=== PATIENT | female | born 1980 | race Caucasian/White ===

== ENCOUNTER → 2018-06-10 | Outpatient (REF) | payer OTHER | LOC: M LAB REF 16:16 | DX: J02.9 Acute pharyngitis, unspecified (principal) | CPT/HCPCS: 87070 ==

== ENCOUNTER 2018-11-02 17:31 | Inpatient (IN) | payer OTHER ==
[~2018-11-02] VITALS: Ht 170.2 cm; Wt 75.6 kg
[2018-11-02] MEDS ORDERED: MULTCAP PO (17:38)
[2018-11-02] MEDS ORDERED: SYNT25TA PO ×2 (17:38→21:09)
[2018-11-02 18:38] LABS: BASO % 0.4 % (0.0-1.0); EOS % 0.3 % (0.0-3.0); HEMATOCRIT 23.3 % (36.0-47.0); LYMPH # 1.6 10^3/uL (1.5-4.5); MEAN CORPUSCULAR HEMOGLOBIN 14.7 pg (27.0-33.0); MEAN CORPUSCULAR HGB CONC 23.6 g/dl (32.0-36.5); MEAN CORPUSCULAR VOLUME 62.5 fl (80.0-96.0); MONO # 0.4 10^3/uL (0.0-0.8); MONO % 4.7 % (0.0-5.0); NEUTROPHILS # 5.6 10^3/uL (1.8-7.7); NEUTROPHILS % 73.3 % (36.0-66.0); PLATELET COUNT, AUTOMATED 347 10^3/uL (150-450); RED BLOOD COUNT 3.73 10^6/uL (4.00-5.40); WHITE BLOOD COUNT 7.7 10^3/uL (4.0-10.0)
[2018-11-02 18:43] LABS: HEMOGLOBIN 5.5 g/dl (12.0-15.5)
[2018-11-02 19:07] LABS: ALBUMIN 3.7 GM/DL (3.2-5.2); ALT/SGPT 16 U/L (12-78); BILIRUBIN,DIRECT 0.2 MG/DL (0.0-0.2); BILIRUBIN,TOTAL 0.5 MG/DL (0.2-1.0); BLOOD UREA NITROGEN 15 MG/DL (7-18); CALCIUM LEVEL 8.4 MG/DL (8.5-10.1); CARBON DIOXIDE LEVEL 26 MEQ/L (21-32); CHLORIDE LEVEL 106 MEQ/L (98-107); CREATININE FOR GFR 0.54 MG/DL (0.55-1.30); GLOMERULAR FILTRATION RATE > 60.0 (>58); GLUCOSE, FASTING 93 MG/DL (70-100); POTASSIUM SERUM 3.7 MEQ/L (3.5-5.1); SODIUM LEVEL 138 MEQ/L (136-145); TOTAL PROTEIN 6.5 GM/DL (6.4-8.2)
[2018-11-02 19:11] LABS: INR 0.92; PROTHROMBIN TIME 12.4 SECONDS (12.1-14.4)
[2018-11-02 19:12] LABS: PARTIAL THROMBOPLASTIN TIME 26.3 SECONDS (25.4-37.6)
[2018-11-02 19:32] LABS: CK-MB VALUE MASS < 1.0 NG/ML (<3.6); CPK CREATINE PHOSPHOKINASE 40 U/L (26-192); IRON (FE) 10 UG/DL (50-170); PERCENT SATURATION 1.8 % (13.2-45.0); TOTAL IRON BINDING CAPACITY 545 UG/DL (250-450); TROPONIN I < 0.02 NG/ML (< 0.10)
[2018-11-02] MEDS ORDERED: ACETAMINOPHEN TAB 650MG DOSE (2X325MG) PO PRN (20:45)
[2018-11-02] MEDS ORDERED: PANTOPRAZOLE SODIUM 40 MG in D5W 50 ML IV SCH (21:00)
[2018-11-02] MEDS: PANTOPRAZOLE 40MG INJ (PROTONIX) (C9113) IV SCH (21:00)
[2018-11-02] MEDS ORDERED: VITACHTA PO (21:09)
--- NOTE | 2018-11-02 21:20 | HPEPDOC ---
General Date of Admission November 02, 2018 at 20:15 Chief Complaint The patient is a 38-year-old female admitted with a reason for visit of Iron Def iciency [place]. Source: Patient Exam Limitations: No limitations Timing/Duration: Unsure Severity: Moderate Associated Symptoms: Denies Symptoms History of Present Illness Pt is a 38 year old female with PMH of hypotyroidism, cholecystitis, and left sided ovarian cyst s/p removal presents to [facility] ER after she was told by her PCP to come to ER d/t Hg of 5.5 on routine blood work. She denies any symptoms and said she had lab done as she has hypothyroidism on levothyroxine. Denies any symptoms including dizziness, lightheadedness, menorrhagia, metrorrhagia, thin stool, hematocheiza, melena, or any other symptoms such as CP/palpitation/SOB. She is unsure about her menstrual cycle but reported one period every month lasting 3-4 days, and uses about 18 tampons for each menstrual cycle, reported the tampons were not soaked. She had never had any colonoscopy done and deneis any FHX of colon CA or blood disease. She had her last child in 2011 with low hemoglobin prior to delivery and required 2 units of blood transfusion after the vaginal delivery; reported lightheadedness/dizziness at that time and she was unsure what her hemoglobin was. Reported she was never told that she had anemia other than her third delivery; last Hg was 2015 and was not aware she had anemia at that time. Denies any FHX of blood disease. It is noted that she had gastric bypass surgery in 2008. Pt is full code Home Medications Scheduled Levothyroxine Sodium (Synthroid) 25 Mcg Tablet, 25 MCG PO DAILY, (Reported) Multivitamins (Child Chew Vitamin) 1 Each Tab.chew, 2 TAB PO DAILY, (Reported) Allergies Coded Allergies: No Known Allergies (Unverified , 11/02/18) Past Medical History Medical History hypothyroidism cholecystitis Left sided ovarian cyst Surgical History Cholecystectomy Tonsilectomy as a child Left ovarian cyst removal; reported no malignancy potential Gastric bypass 2008 Three deliveries 1998, 2000, and 2011; anemia requiring 2 units blood transfusion in 2011 Family History Significant Family History: Hypertension (father), Other (Deneis any colon CA or blood disorder) Social History * Smoker: Denies A-FIB/CHADSVASC A-FIB History Current/History of A-Fib/PAF?: No Review of Systems Constitutional: Denies: Chills, Fever, Weakness, Fatigue Pulmonary: Denies: Dyspnea Cardiovascular: Denies: Chest Pain, Palpitations, Lt Headedness Gastrointestinal: Denies: Nausea, Vomiting, Abdominal Pain, Diarrhea, Constipation, Melena, Hematochezia Genitourinary: Denies: Dysuria, Frequency, Incontinence, Hematuria, Retention Hematologic: Denies: Bruising, Bleeding Excessively Neurological: Denies: Weakness Physical Examination General Exam: Positive: Alert, No Acute Distress Eye Exam: Positive: Other Eye Symptoms (pale palpebral conjunctiva in bilateral lower eyelids); Negative: Sclera icteric ENT Exam: Positive: Atraumatic, Other ENT (lips moist and pink) Neck Exam: Positive: Supple Chest Exam: Positive: Clear to auscultation, Normal air movement; Negative: Rales, Rhonchi, Wheezing Heart Exam: Positive: Tachycardic, Regular Rhythm, Normal S1, Normal S2; Negative: Murmurs Abdomen Exam: Positive: Normal bowel sounds, Soft; Negative: Tenderness Extremity Exam: Positive: Normal pulses (b/l radial pulses), Other (finger nail beds appear to be pale); Negative: Swelling Skin Exam: Positive: Nl turgor and temperature Neuro Exam: Positive: Normal Speech, Strength at 5/5 X4 ext, Normal Tone Psych Exam: Positive: Mental status NL, Mood NL, Memory Intact, Oriented x 3 Other physical findings no spurapubic tenderness Vital Signs Vital Signs Date Time Temp Pulse Resp B/P (MAP) Pulse Ox O2 Delivery O2 Flow Rate FiO2 11/02/18 18:01 11/02/18 17:31 98.9 102 16 100 Room Air Laboratory Data Labs 24H Laboratory Tests 2 11/02/18 18:03: Immature Granulocyte % (Auto) 0.3, White Blood Count 7.7, Red Blood Count 3.73L, Hemoglobin 5.5*L, Hematocrit 23.3L, Mean Corpuscular Volume 62.5L, Mean Corpuscular Hemoglobin 14.7L, Mean Corpuscular Hemoglobin Concent 23.6L, Red Cell Distribution Width 22.2H, Platelet Count 347, Neutrophils (%) (Auto) 73.3H, Lymphocytes (%) (Auto) 21.0L, Monocytes (%) (Auto) 4.7, Eosinophils (%) (Auto) 0.3, Basophils (%) (Auto) 0.4, Neutrophils # (Auto) 5.6, Lymphocytes # (Auto) 1.6, Monocytes # (Auto) 0.4, Eosinophils # (Auto) 0.0, Basophils # (Auto) 0.0, Nucleated Red Blood Cells % (auto) 0.0, Prothrombin Time 12.4, Prothromb Time International Ratio 0.92, Activated Partial Thromboplast Time 26.3, Anion Gap 6L, Glomerular Filtration Rate > 60.0, Calcium Level 8.4L, Iron Level 10L, Total Iron Binding Capacity 545H, Transferrin % Saturation 1.8L, Aspartate Amino Trans f (AST/SGOT) 13, Alanine Aminotransferase (ALT/SGPT) 16, Alkaline Phosphatase 96, Total Bilirubin 0.5, Direct Bilirubin 0.2, Total Creatine Kinase 40, Creatine Kinase MB < 1.0, Creatine Kinase MB Relative Index 2.50, Troponin I < 0.02, Total Protein 6.5, Albumin 3.7, Albumin/Globulin Ratio 1.32, Thyroid Stimulating Hormone (TSH) 2.490 CBC/BMP Laboratory Tests 11/02/18 18:03 Red Blood Count 3.73 L, Mean Corpuscular Volume 62.5 L, Mean Corpuscular Hemoglobin 14.7 L, Mean Corpuscular Hemoglobin Concent 23.6 L, Red Cell Distribution Width 22.2 H, Neutrophils (%) (Auto) 73.3 H, Lymphocytes (%) (Auto) 21.0 L, Monocytes (%) (Auto) 4.7, Eosinophils (%) (Auto) 0.3, Basophils (%) (Auto) 0.4, Neutrophils # (Auto) 5.6, Lymphocytes # (Auto) 1.6, Monocytes # (Auto) 0.4, Eosinophils # (Auto) 0.0, Basophils # (Auto) 0.0 Problems (1) Iron deficiency anemia Problem Text: Cannot r/o GI bleed. Discussed with Dr. Meek, pt will be on clear liquid diet, IV protonix and LDH, haptologbin, and peripheral smear ordered. GI consult ordered, likely bowel prep pt tmrw and pt will be on clear liquid diet now; likely scheduled for upper and lower EGD 11/04/18. B12 and folate ordered as pt had gastric bypass surgery 10 years ago. Microcytic anemia with iron panel showed iron deficiency anemia without obvious source of bleeding at this time. 2 units of blood tranfusion ordered in ER. Cont to trend H&H Q4H with morning CBC. Pt currently asymptomatic. Vital signs as scheduled and cont to monitor the pt (2) Hypothyroidism Status: Chronic Problem Text: Cont home med levothyroxine. Cont to monitor the pt. Vital signs as scheduled Plan / VTE VTE Prophylaxis Ordered?: Yes (TEDS and SCD) SHIRA AGGARWAL DO November 02, 2018 21:20
[2018-11-02 21:47] LABS: HCG, SERUM QUALITATIVE NEGATIVE (NEGATIVE)
[2018-11-02 21:53] LABS: LDH LACTATE DEHYDROGENASE 161 U/L (84-246)
[2018-11-02 22:27] LABS: FOLATE 19.3 NG/ML; VITAMIN B12 LEVEL 1048 PG/ML
[2018-11-02 23:00] VITALS: BP 119/66
--- NOTE | 2018-11-03 00:56 | REP ---
Clinical: Anemia . Comparison: None . Technique: PA and lateral. Findings: The mediastinum and cardiac silhouette are normal. The lung pedersen are clear and without acute consolidation, effusion, or pneumothorax. The skeletal structures are intact and normal. Impression: 1. No acute cardiopulmonary process. Electronically Signed by Mika Guerrero MD 11/03/2018 12:48 A
[2018-11-03] MEDS: FERROUS SULFATE 325MG TAB PO SCH ×2 (01:40→20:44)
[2018-11-03 02:40] VITALS: BP 129/61
[2018-11-03 03:30] LABS: HEMATOCRIT 25.6 % (36.0-47.0)
[2018-11-03] MEDS: LEVOTHYROXINE 25MCG TABLET (0.025MG) PO SCH (06:02)
[2018-11-03 07:09] LABS: HEMATOCRIT 26.6 % (36.0-47.0); HEMOGLOBIN 7.2 g/dl (12.0-15.5); MEAN CORPUSCULAR HEMOGLOBIN 18.3 pg (27.0-33.0); MEAN CORPUSCULAR HGB CONC 27.1 g/dl (32.0-36.5); MEAN CORPUSCULAR VOLUME 67.7 fl (80.0-96.0); PLATELET COUNT, AUTOMATED 276 10^3/uL (150-450); RED BLOOD COUNT 3.93 10^6/uL (4.00-5.40); WHITE BLOOD COUNT 6.6 10^3/uL (4.0-10.0)
[2018-11-03 07:27] LABS: BLOOD UREA NITROGEN 11 MG/DL (7-18); CALCIUM LEVEL 8.1 MG/DL (8.5-10.1); CARBON DIOXIDE LEVEL 26 MEQ/L (21-32); CHLORIDE LEVEL 108 MEQ/L (98-107); CREATININE FOR GFR 0.46 MG/DL (0.55-1.30); GLOMERULAR FILTRATION RATE > 60.0 (>58); GLUCOSE, FASTING 89 MG/DL (70-100); POTASSIUM SERUM 3.7 MEQ/L (3.5-5.1); SODIUM LEVEL 140 MEQ/L (136-145)
[2018-11-03 08:00] VITALS: BP 121/67
[2018-11-03] MEDS: MULTIVITAMINS CHILDREN'S CHEWABLE TABLET PO SCH (08:52)
[2018-11-03] MEDS: PANTOPRAZOLE 40MG INJ (PROTONIX) (C9113) IV SCH ×2 (08:52→20:44)
[2018-11-03 10:19] LABS: HEMATOCRIT 27.8 % (36.0-47.0); HEMOGLOBIN 7.5 g/dl (12.0-15.5)
--- NOTE | 2018-11-03 13:53 | IPNPDOC ---
Text Note Date of Service The patient was seen on 11/03/18. NOTE Subjective: Patient is a 2-year-old female with a PMHx of Hypothyroidism and Hyx of Gastric Bypass who presented to the ER at the direction of her primary care provider because she was advised her hemoglobin was 5.5 on routine blood. Patient denied any symptoms upon arrival to ER. Hospital service was called for further evaluation and treatment. Gastroenterology was called on consultation. Patient was seen and examined at the bedside. Patient reports that they deny any change in the color of their stool, deny any gross blood in urine or stool. Deny any dizziness or light-headedness. Patient denies any short of breath, chest pain or palpitations. They deny nausea, vomiting, abdominal pain, constipation or diarrhea. He denies any urinary discomfort. Objective: Vitals (See below) General: Lying in bed, no acute distress, comfortable, AAOx3 HEENT: NC, AT CVS: RRR, +S1S2 Lungs: Fair air entry b/l, -w/r/r Abdomen: Soft, ND, NT Extremities: - Edema, - Calf tenderness Assessment and plan: Chronic anemia - possibly 2/2 slow GI bleed / Poor iron absorption - Presented to the emergency room at the direction of her primary care provider for abnormal hemoglobin on routine blood work - Remains hemodynamically stable - On arrival to emergency room was 5.5; Has improved after 2 units of PRBC - Dr. Meek on consult; possibly EGD / Colonoscopy - c/w Protonix BID - c/w Clear liquid diet today; NPO for possible procedure Iron deficiency anemia - Will c/w iron supplementation Hypothyroidism - c/w Levothyroxine GI prophylaxis - c/w Protonix DVT prophylaxis - c/w SCDs/TEDs VS,Fishbone, I+O VS, Fishbone, I+O Laboratory Tests 11/02/18 18:03 Red Blood Count 3.73 L, Mean Corpuscular Volume 62.5 L, Mean Corpuscular Hemoglobin 14.7 L, Mean Corpuscular Hemoglobin Concent 23.6 L, Red Cell Distribution Width 22.2 H, Neutrophils (%) (Auto) 73.3 H, Lymphocytes (%) (Auto) 21.0 L, Monocytes (%) (Auto) 4.7, Eosinophils (%) (Auto) 0.3, Basophils (%) (Auto) 0.4, Neutrophils # (Auto) 5.6, Lymphocytes # (Auto) 1.6, Monocytes # (Auto) 0.4, Eosinophils # (Auto) 0.0, Basophils # (Auto) 0.0 11/03/18 03:16 11/03/18 06:32 Red Blood Count 3.93 L, Mean Corpuscular Volume 67.7 L, Mean Corpuscular Hemoglobin 18.3 L, Mean Corpuscular Hemoglobin Concent 27.1 L, Red Cell Distribution Width 26.1 H, Calcium Level 8.1 L 11/03/18 09:56 Vital Signs Date Time Temp Pulse Resp B/P (MAP) Pulse Ox O2 Delivery O2 Flow Rate FiO2 11/03/18 08:00 98.3 76 18 121/67 (85) 98 11/02/18 22:00 Room Air I&O- Last 24 Hours up to 6 AM 11/03/18 06:00 Intake Total 360 ml Output Total 250 ml Balance 110 ml NAYA BILLY MD November 03, 2018 13:53
[2018-11-03 14:07] LABS: HEMATOCRIT 28.8 % (36.0-47.0); HEMOGLOBIN 7.6 g/dl (12.0-15.5)
[2018-11-03 16:00] VITALS: BP 108/67
[2018-11-03] MEDS ORDERED: BISACODYL 5 MG TAB PO ONE (18:00)
[2018-11-03] MEDS ORDERED: GOLYTELY SOLN 4000 ML BTL PO ONE (19:00)
--- NOTE | 2018-11-03 19:15 | CR.PDOC ---
General Date of Consultation: November 03, 2018 Referring Provider: NAYA BILLY MD Attending Physician: CHRISTIANA MARTIN MD Consultation Primary physician/ hospitalist: Dr. Billy Reason for consult: Iron deficiency anemia HPI: 38-year-old female patient with hypothyroidism, gastric bypass 10 years ago, was sent from PCP clinic to ER due to severe anemia on routine labs. GI was consulted for the same. Patient reports having anemia during her third 5 years ago, but it resolved after iron supplementation. Patient denies any active GI symptoms and specifically denies noticing any dark stools, diarrhea, blood in the stools. Patient also reports her menstrual cycles cause normal to low bleeding and denies any heavy periods. Patient is not taking iron supplementation for many years. Pertinent negative GI symptoms: Patient denies nausea, vomiting, diarrhea, abdominal pain, loss of appetite, early satiety or unintentional weight loss. No history of hematemesis, melena or hematochezia. Patient reports regular bowel movements. Review of Systems: GI: as stated above CVS: No chest pain, No palpitations, No leg swelling. RS: No Shortness of breath, No Wheezing, no cough BEAN DUMPER: No dizziness, No motor weakness, No sensory problems Hematology: No bruising, No gum bleeding, Musculoskeletal: No joint pain, ambulating well. Skin: No rash : No hematuria, No burning sensation of the urine ENT: No ear discharge/ pain, No dysphagia. Eyes: No photophobia. Home medications: reviewed. Antithrombotic agents -none Medical h/o: As above. Surgical h/o: None on abdomen. Social h/o: Alcohol-denies, tobacco- Denies , IVDA/ drugs- Denies. Family h/o of GI cancers - None Prior Endoscopies: None Prior GI evaluation: None Exam: Vitals: reviewed General: Alert and oriented x 3, not in distress HEENT: NO pallor, no icterus. Normal oropharynx, NO cervical lymph nodes. Chest: symmetric with bilateral clear air entry, CVS: S1, S2 heard, normal, no murmurs . Abdomen: non-distended, no surgical scars, soft, non-tender, no palpable masses, normal bowel sounds heard. Rectal exam: Patient refused / Deferred at this time in view of scheduled colonoscopy. Extremities: no pedal edema, pulses palpable. BEAN DUMPER: no focal motor or sensory deficits. Moves all extremities Skin: no rash. Labs: reviewed. Impression: - Severe iron deficiency anemia - chronic with no active GI symptoms at this time -- DDx-- Likely Chronic Gi blood loss vs Poor iron absorption from prior Gastric bypass surgery. Recommendations: - Patient educated about the test results, possible differential diagnoses and All questions answered. - Monitor H/h and transfuse if needed to keep hemoglobin around 7-8gm/dL. - Patient is educated about further workup plan including endoscopy inpatient or outpatient basis. Patient is concerned and wanted the endoscopy workup as inpatient. - Will schedule for EGD and colonoscopy after bowel preparation. - The procedures, indications, risks (bleeding, perforation, infection, hypotension, respiratory depression, allergy, need for endotracheal intubation, surgery, colostomy, cardiac arrest, even ), benefits, limitations (e.g., missing a lesion), and all other alternatives (including no intervention) were explained to the patient who understood and agreed for the procedures. Plan of care discussed with patient and primary team. Patient verbalized understanding and agreed with the plan. Allergies Coded Allergies: No Known Allergies (Unverified , 11/02/18) Home Medications Scheduled Levothyroxine Sodium (Synthroid) 25 Mcg Tablet, 25 MCG PO DAILY, (Reported) Multivitamins (Child Chew Vitamin) 1 Each Tab.chew, 2 TAB PO DAILY, (Reported) CHRISTIANA MARTIN MD November 03, 2018 19:15
[2018-11-03 20:00] VITALS: BP 122/73
--- NOTE | 2018-11-03 20:21 | ECGEPIP ---
Stationary ECG Study [facility] - ED Test Date: 2018-11-02 Pat Name: MAYUR ORR Department: Room: - Gender: F Parachute Line Tier: pmo : 1980 Requested By: VENU WALKER Order Number: [id number] Reading MD: Danelle Myers Measurements Intervals [place] Rate: 82 P: 66 [place]: 124 QRS: 51 QRSD: 78 T: 49 QT: 344 QTc: 403 Interpretive Statements SINUS RHYTHM NSTTW ABNORMALITY NO PRIOR FOR COMPARISON Electronically Signed On 11-03-2018 20:20:45 EDT by Danelle Myers
[2018-11-04] VITALS: BP 108/62
[2018-11-04] MEDS: LEVOTHYROXINE 25MCG TABLET (0.025MG) PO SCH (06:09)
[2018-11-04 06:56] LABS: HEMATOCRIT 26.7 % (36.0-47.0); HEMOGLOBIN 7.1 g/dl (12.0-15.5); MEAN CORPUSCULAR HEMOGLOBIN 17.8 pg (27.0-33.0); MEAN CORPUSCULAR HGB CONC 26.6 g/dl (32.0-36.5); MEAN CORPUSCULAR VOLUME 67.1 fl (80.0-96.0); PLATELET COUNT, AUTOMATED 267 10^3/uL (150-450); RED BLOOD COUNT 3.98 10^6/uL (4.00-5.40)
[2018-11-04 07:18] LABS: BLOOD UREA NITROGEN 4 MG/DL (7-18); CALCIUM LEVEL 8.2 MG/DL (8.5-10.1); CARBON DIOXIDE LEVEL 29 MEQ/L (21-32); CHLORIDE LEVEL 106 MEQ/L (98-107); CREATININE FOR GFR 0.46 MG/DL (0.55-1.30); GLOMERULAR FILTRATION RATE > 60.0 (>58); GLUCOSE, FASTING 94 MG/DL (70-100); POTASSIUM SERUM 3.2 MEQ/L (3.5-5.1); SODIUM LEVEL 141 MEQ/L (136-145)
[2018-11-04 08:00] VITALS: BP 136/57
[2018-11-04] MEDS: MULTIVITAMINS CHILDREN'S CHEWABLE TABLET PO SCH (08:41)
[2018-11-04] MEDS: PANTOPRAZOLE 40MG INJ (PROTONIX) (C9113) IV SCH (08:42)
[2018-11-04] MEDS ORDERED: POTASSIUM CHLORIDE 10 MEQ SR TABLET PO ONE (09:00)
[2018-11-04] MEDS ORDERED: FERR325T18 PO (10:35)
--- NOTE | 2018-11-04 13:39 | DS.PDOC ---
Discharge Summary General Date of Admission November 03, 2018 at 13:42 Date of Discharge 11/04/2018 Discharge Summary PROCEDURES PERFORMED DURING STAY: EGD and Colonoscopy performed on 11/04/[address] Meek ADMITTING DIAGNOSES / DISCHARGE DIAGNOSES: Chronic anemia - possibly 2/2 slow GI bleed / Poor iron absorption Iron deficiency anemia Hypothyroidism GI prophylaxis DVT prophylaxis COMPLICATIONS/CHIEF COMPLAINT: Sent to the emergency room because of low hemoglobin HISTORY OF PRESENT ILLNESS: Patient is a 2-year-old female with a PMHx of Hypothyroidism and Hyx of Gastric Bypass who presented to the ER at the direction of her primary care provider because she was advised her hemoglobin was 5.5 on routine blood. Patient denied any symptoms upon arrival to ER. Hospital service was called for further evaluation and treatment. Gastroenterology was called on consultation. HOSPITAL COURSE: Chronic anemia - possibly 2/2 slow GI bleed / Poor iron absorption - Presented to the emergency room at the direction of her primary care provider for abnormal hemoglobin on routine blood work - Remains hemodynamically stable - On arrival to emergency room was 5.5; Has improved after 2 units of PRBC - s/p EGD and Colonoscopy with Dr. Meek - Dr. Meek on consult - Will have outpatient follow up with Dr. Meek and PCP as an outpatient Iron deficiency anemia - Will c/w iron supplementation; will continue on discharge Hypothyroidism - c/w Levothyroxine GI prophylaxis - c/w Protonix DVT prophylaxis - c/w SCDs/TEDs DISCHARGE MEDICATIONS: Please see below. ALLERGIES: Please see below. PHYSICAL EXAMINATION ON DISCHARGE: Vitals (See below) General: Lying in bed, no acute distress, comfortable, AAOx3 HEENT: NC, AT CVS: RRR, +S1S2 Lungs: Fair air entry b/l, -w/r/r Abdomen: Soft, ND, NT Extremities: - Edema, - Calf tenderness LABORATORY DATA: Please see below. ACTIVITY: [As tolerated]. DISCHARGE PLAN: Follow up with PCP at [facility] and Dr. Meek within 7 days Remain compliant with treatment plan and medications Return to the ER if you experience any problems DISPOSITION: Home DISCHARGE CONDITION: [Stable]. TIME SPENT ON DISCHARGE: Greater than [35] minutes. Vital Signs/I&Os Vital Signs Date Time Temp Pulse Resp B/P (MAP) Pulse Ox O2 Delivery O2 Flow Rate FiO2 11/04/18 08:00 98.3 70 16 136/57 (83) 99 11/02/18 22:00 Room Air I&O- Last 24 Hours up to 6 AM 11/04/18 05:59 Intake Total 3120 ml Output Total 1200 ml Balance 1920 ml Laboratory Data Labs 24H Laboratory Tests 2 11/04/18 06:19: Nucleated Red Blood Cells % (auto) 0.4H, Anion Gap 6L, Glomerular Filtration Rate > 60.0, Blood Urea Nitrogen 4#L, Creatinine 0.46L, Sodium Level 141, Potassium Level 3.2L, Chloride Level 106, Carbon Dioxide Level 29, Calcium Level 8.2L CBC/BMP Laboratory Tests 11/03/18 13:51 11/04/18 06:19 Red Blood Count 3.98 L, Mean Corpuscular Volume 67.1 L, Mean Corpuscular Hemoglobin 17.8 L, Mean Corpuscular Hemoglobin Concent 26.6 L, Red Cell Distribution Width 26.2 H, Calcium Level 8.2 L Discharge Medications Scheduled Ferrous Sulfate (Ferrous Sulfate) 325 Mg Tablet, 325 MG PO BID Levothyroxine Sodium (Synthroid) 25 Mcg Tablet, 25 MCG PO DAILY, (Reported) Multivitamins (Child Chew Vitamin) 1 Each Tab.chew, 2 TAB PO DAILY, (Reported) Allergies Coded Allergies: No Known Allergies (Unverified , 11/02/18) NAYA BILLY MD November 04, 2018 13:39
[2018-11-04] MEDS ORDERED: PROPOFOL 200 MG/20 ML VIAL As Ordered ONE ×3 (14:51→15:32)
[2018-11-04] MEDS ORDERED: LIDOCAINE 2% INJ 100 MG/5 ML SDV (FOR ANES.) As Ordered ONE (14:52)
[2018-11-04] MEDS ORDERED: fentaNYL 100 MCG/2 ML INJECTION (J3010) As Ordered ONE (14:52)
--- NOTE | 2018-11-04 15:58 | ROOR ---
Patient Name: Liana Elliott Procedure Date: 11/04/2018 2:54 PM Date of : 1980 Age: 38 Room: [facility] Gender: Female Note Status: Finalized Procedure: Upper GI endoscopy Indications: Suspected upper gastrointestinal bleeding in patient with chronic blood loss, Gastrointestinal bleeding of unknown origin, Iron deficiency anemia Providers: Bhavin Meek MD Referring MD: JOSETTE FINCH MD Requesting Provider: Medicines: Monitored Anesthesia Care Complications: No immediate complications. Procedure: Pre-Anesthesia Assessment: - Prior to the procedure, a History and Physical was performed, and patient medications and allergies were reviewed. The patient is competent. The risks and benefits of the procedure and the sedation options and risks were discussed with the patient. All questions were answered and informed consent was obtained. Patient identification and proposed procedure were verified by the physician, the nurse and the anesthesiologist in the procedure room. Mental Status Examination: alert and oriented. Airway Examination: normal oropharyngeal airway and neck mobility. Respiratory Examination: clear to auscultation. CV Examination: normal. Prophylactic Antibiotics: The patient does not require prophylactic antibiotics. Prior Anticoagulants: The patient has taken no previous anticoagulant or antiplatelet agents. ASA Grade Assessment: II - A patient with mild systemic disease. After reviewing the risks and benefits, the patient was deemed in satisfactory condition to undergo the procedure. The anesthesia plan was to use monitored anesthesia care (MAC). Immediately prior to administration of medications, the patient was re-assessed for adequacy to receive sedatives. The heart rate, respiratory rate, oxygen saturations, blood pressure, adequacy of pulmonary ventilation, and response to care were monitored throughout the procedure. The physical status of the patient was re-assessed after the procedure. The Endoscope was introduced through the mouth, and advanced to the efferent jejunal loop. The upper GI endoscopy was accomplished without difficulty. The patient tolerated the procedure well. Findings: Patchy, white plaques were found in the lower third of the esophagus. Biopsies were taken with a cold forceps for histology. Verification of patient identification for the specimen was done by the physician and nurse using the patient's name, date and medical record number. Estimated blood loss was minimal. 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 The gastrojejunal anastomosis was characterized by healthy appearing mucosa and an intact staple line. This was traversed. The jejunojejunal anastomosis was characterized by ulceration. The cmpaxhhu-op-ktsjdlj limb was not examined as it could not be found. One non-bleeding cratered gastric ulcer with a clean ulcer base (Khurram Class III) was found at the anastomosis. The lesion was 10 mm in largest dimension. Biopsies were taken with a cold forceps for histology. For hemostasis, two hemostatic clips were successfully placed. There was no bleeding at the end of the procedure. Normal mucosa was found in the jejunum. Biopsies for histology were taken with a cold forceps for evaluation of celiac disease. Impression: - Esophageal plaques were found, suspicious for candidiasis. Biopsied. - Nia-en-Y gastrojejunostomy with gastrojejunal anastomosis characterized by an intact staple line and healthy appearing mucosa. - Non-bleeding gastric ulcer with a clean ulcer base (Khurram Class III). Biopsied. Clips were placed. - Normal mucosa was found in the jejunum. Biopsied. Recommendation: - Patient has a contact number available for emergencies. The signs and symptoms of potential delayed complications were discussed with the patient. Return to normal activities tomorrow. Written discharge instructions were provided to the patient. - Resume previous diet. - Continue present medications. - Use Protonix (pantoprazole) 40 mg PO twice daily - to be taken in morning (1/2 hour before breakfast) and at bedtime ( atleast 3 hours after last meal) for 3 months. - Recommend an iron supplement. - Check hemoglobin and hematocrit in 3 months. - Return to GI clinic in [facility] (address [address], [address], [place], [facility]) in 4 -- 6 weeks. Please call GI clinic @ [phone] for apppointment date and time. - Return to primary care physician. Bhavin Meek MD Bhavin Meek MD 11/04/2018 3:57:53 PM Electronically signed by Bhavin Meek MD Number of Addenda: 0 Note Initiated On: 11/04/2018 2:54 PM Estimated Blood Loss: Estimated blood loss was minimal.
--- NOTE | 2018-11-04 16:00 | ROOR ---
Patient Name: Liana Elliott Procedure Date: 11/04/2018 2:55 PM Date of : 1980 Age: 38 Room: [facility] Gender: Female Note Status: Finalized Procedure: Colonoscopy Indications: Iron deficiency anemia secondary to chronic blood loss, Unexplained iron deficiency anemia Providers: Bhavin Meek MD Referring MD: JOSETTE FINCH MD Requesting Provider: Medicines: Monitored Anesthesia Care Complications: No immediate complications. Procedure: Pre-Anesthesia Assessment: - Prior to the procedure, a History and Physical was performed, and patient medications and allergies were reviewed. The patient is competent. The risks and benefits of the procedure and the sedation options and risks were discussed with the patient. All questions were answered and informed consent was obtained. Patient identification and proposed procedure were verified by the physician, the nurse and the anesthesiologist in the procedure room. Mental Status Examination: alert and oriented. Airway Examination: normal oropharyngeal airway and neck mobility. Respiratory Examination: clear to auscultation. CV Examination: normal. Prophylactic Antibiotics: The patient does not require prophylactic antibiotics. Prior Anticoagulants: The patient has taken no previous anticoagulant or antiplatelet agents. ASA Grade Assessment: II - A patient with mild systemic disease. After reviewing the risks and benefits, the patient was deemed in satisfactory condition to undergo the procedure. The anesthesia plan was to use monitored anesthesia care (MAC). Immediately prior to administration of medications, the patient was re-assessed for adequacy to receive sedatives. The heart rate, respiratory rate, oxygen saturations, blood pressure, adequacy of pulmonary ventilation, and response to care were monitored throughout the procedure. The physical status of the patient was re-assessed after the procedure. The Colonoscope was introduced through the anus and advanced to the terminal ileum, with identification of the appendiceal orifice and IC valve. The colonoscopy was performed without difficulty. The patient tolerated the procedure well. The quality of the bowel preparation was fair. The terminal ileum, ileocecal valve, appendiceal orifice, and rectum were photographed. Scope insertion time was 5 minutes. Scope withdrawal time was 10 minutes. The total duration of the procedure was 15 minutes. Findings: The perianal and digital rectal examinations were normal. The terminal ileum appeared normal. Non-bleeding external and internal hemorrhoids were found during retroflexion. The hemorrhoids were medium-sized. The colon (entire examined portion) was moderately tortuous. No other significant abnormalities were identified in a careful examination of the remainder of the colon. Impression: - Preparation of the colon was fair. - The examined portion of the ileum was normal. - Non-bleeding external and internal hemorrhoids. - Tortuous colon. - No specimens collected. Recommendation: - Patient has a contact number available for emergencies. The signs and symptoms of potential delayed complications were discussed with the patient. Return to normal activities tomorrow. Written discharge instructions were provided to the patient. - Resume previous diet. - Continue present medications. - Repeat colonoscopy at age 48 for screening purposes. - Return to GI clinic in 3 months. - Return to primary care physician. Bhavin Meek MD Bhavin Meek MD 11/04/2018 4:00:19 PM Electronically signed by Bhavin Meek MD Number of Addenda: 0 Note Initiated On: 11/04/2018 2:55 PM Estimated Blood Loss: Estimated blood loss was minimal.
[2018-11-04 16:20] VITALS: BP 126/82
[2018-11-04] MEDS ORDERED: PROTPAK PO (16:31)
== END 2018-11-04 17:45 | disposition home or self-care (01) | DRG 812 ==
LOC: M ED 17:31 → M ED INP 20:15 → M PED 22:58 → OBSVTOIN 11-03 13:42
PROVIDERS: ADMIT Internal Medicine; ATTEND Internal Medicine
PROC: 30233N1 Transfusion of Nonautologous Red Blood Cells into Peripheral Vein, Percutaneous Approach (ICD-10-PCS; 2018-11-03)
PROC: 0DBA8ZX Excision of Jejunum, Via Natural or Artificial Opening Endoscopic, Diagnostic (ICD-10-PCS; 2018-11-04)
PROC: 0DJD8ZZ Inspection of Lower Intestinal Tract, Via Natural or Artificial Opening Endoscopic (ICD-10-PCS; 2018-11-04)
PROC: 0DB38ZX Excision of Lower Esophagus, Via Natural or Artificial Opening Endoscopic, Diagnostic (ICD-10-PCS; principal; 2018-11-04 13:45)
DX: D50.9 Iron deficiency anemia, unspecified (principal); B37.81 Candidal esophagitis; E03.9 Hypothyroidism, unspecified; K64.8 Other hemorrhoids; K64.4 Residual hemorrhoidal skin tags; Z98.84 Bariatric surgery status; K28.9 Gastrojejunal ulcer, unspecified as acute or chronic, without hemorrhage or perforation; Z79.899 Other long term (current) drug therapy

== ENCOUNTER → 2019-08-16 | Outpatient (CLI) | payer OTHER ==
[~2019-08-16] MED LIST: FERR325T18 PO; MULTCAP PO; PROTPAK PO; SYNT25TA PO; VITACHTA PO
--- NOTE | 2019-08-16 10:57 | REP ---
Clinical: Sprain. Technique: AP, lateral, flexion/extension, bilateral oblique, swimmers, and open-mouth views. Findings: Alignment and lordosis is maintained. There is no evidence for acute fracture / compression injury or subluxation. No significant degenerative changes are appreciated. Oblique views demonstrate patent neural foramen. Open mouth view demonstrates normal C1-C2 articulation and odontoid process. Impression: Normal cervical spine series. Electronically Signed by Mika Guerrero MD 08/16/2019 10:48 A
== END ==
LOC: M WUC 10:07
PROVIDERS: ATTEND Physician Assistant
DX: S13.4XXA Sprain of ligaments of cervical spine, initial encounter (principal); S06.0X0A Concussion without loss of consciousness, initial encounter; X58.XXXA Exposure to other specified factors, initial encounter; Y92.9 Unspecified place or not applicable

== ENCOUNTER → 2019-12-14 | Outpatient (CLI) | payer OTHER ==
[~2019-12-14] MED LIST changes: +PANT40TA29 PO
[2019-12-14 11:59] LABS: BASO % 0.6 % (0.0-1.0); EOS # 0.1 10^3/uL (0.0-0.5); EOS % 1.1 % (0.0-3.0); HEMATOCRIT 32.1 % (36.0-47.0); HEMOGLOBIN 8.6 g/dl (12.0-15.5); LYMPH # 1.2 10^3/uL (1.5-5.0); MEAN CORPUSCULAR HEMOGLOBIN 18.5 pg (27.0-33.0); MEAN CORPUSCULAR HGB CONC 26.8 g/dl (32.0-36.5); MEAN CORPUSCULAR VOLUME 69.2 fl (80.0-96.0); MONO # 0.4 10^3/uL (0.0-0.8); MONO % 6.6 % (0.0-5.0); NEUTROPHILS # 4.7 10^3/uL (1.5-8.5); NEUTROPHILS % 72.4 % (36.0-66.0); PLATELET COUNT, AUTOMATED 325 10^3/uL (150-450); RED BLOOD COUNT 4.64 10^6/uL (4.00-5.40); WHITE BLOOD COUNT 6.5 10^3/uL (4.0-10.0)
[2019-12-14 12:11] LABS: INR 0.97; PROTHROMBIN TIME 12.6 SECONDS (11.8-14.0)
[2019-12-14 12:36] LABS: ALBUMIN 3.8 GM/DL (3.2-5.2); ALT/SGPT 19 U/L (12-78); BILIRUBIN,DIRECT 0.2 MG/DL (0.0-0.2); BILIRUBIN,TOTAL 0.4 MG/DL (0.2-1.0); FERRITIN 3 NG/ML (8-252); FOLATE 14.1 NG/ML; HEPATITIS B SURFACE ANTIBODY NEGATIVE (POSITIVE); IRON (FE) 14 UG/DL (50-170); PERCENT SATURATION 2.5 % (13.2-45.0); TOTAL IRON BINDING CAPACITY 551 UG/DL (250-450); TOTAL PROTEIN 6.8 GM/DL (6.4-8.2); VITAMIN B12 LEVEL 393 PG/ML
[2019-12-14 12:42] LABS: HEPATITIS B SURFACE ANTIGEN NEGATIVE (NEGATIVE)
[2019-12-14 13:11] LABS: HEPATITIS C VIRUS ABY INDEX 0.2 INDEX (<0.8)
[2019-12-15 14:17] LABS: CERULOPLASMIN 23.2 mg/dL (19.0-39.0)
[2019-12-16 06:59] LABS: ANTI-MITOCHONDRIAL ANTIBODY <20.0 Units (0.0-20.0); ANTI-SMOOTH MUSCLE ANTIBODY 5 Units (0-19); ANTINUCLEAR ANTIBODIES DIRECT Negative (Negative); HEPATITIS A IgG TOTAL Negative (Negative); IGASUB2 90.2 mg/dL (73.2-301.2); IGASUB3 24.2 mg/dL (13.4-97.9); IgA SERUM (part of Subclasses) 104 mg/dL (87-352); LIVER-KIDNEY MICROSOMAL ABY <20.1 Units (0.0-20.0); TISSUE TRANSGLUTAMINASE IgA <2 U/mL (0-3)
== END ==
LOC: M LAB 10:11
PROVIDERS: ATTEND Internal Medicine Gastroenterology
DX: R10.11 Right upper quadrant pain (principal)

== ENCOUNTER → 2019-12-22 | Outpatient (REF) | payer OTHER ==
[~2019-12-22] MED LIST changes: -PANT40TA29 PO
[2019-12-31 15:15] LABS: CALPROTECTIN STOOL <16 ug/g (0-120); FATS NEUTRAL Normal (.); FATS TOTAL Normal (.); PANCREATIC ELASTASE STOOL 383 (>200)
== END ==
LOC: M LAB REF 06:35
PROVIDERS: ATTEND Internal Medicine Gastroenterology
DX: R10.11 Right upper quadrant pain (principal)

== ENCOUNTER → 2020-02-13 | Outpatient (CLI) | payer OTHER ==
[~2020-02-13] MED LIST changes: +PANT40TA29 PO
--- NOTE | 2020-03-22 09:25 | REP ---
COMPLETE ABDOMINAL SONOGRAPHY: HISTORY: Right upper quadrant pain. FINDINGS: Scanning through the right upper quadrant of the abdomen demonstrates a normal size homogeneous liver. No focal liver lesion is seen. The gallbladder is surgically absent. The common bile duct is normal post cholecystectomy, measuring 0.75 cm in diameter. No pancreatic abnormality is observed. A normal caliber, 2.3 cm aorta is encountered. A normal sized homogeneous spleen is seen with maximum diameter of 12.6 cm. Renal cortical echogenicity pattern is normal and contours are smooth bilaterally. There is no evidence of hydronephrosis, renal cyst or mass on either side. No calculus is seen. Right renal dimensions are 11.6 x 5.4 x 4.8 cm. The left kidney measures 12.0 x 6.0 x 4.7 cm. IMPRESSION: Negative complete abdominal sonography. MTDD
== END ==
LOC: M RAD 06:43
PROVIDERS: ATTEND Internal Medicine Gastroenterology
DX: R10.11 Right upper quadrant pain (principal)

== ENCOUNTER → 2020-02-27 | Day surgery (SDC) | payer OTHER ==
[~2020-02-27] VITALS: Ht 172.7 cm; Wt 83.5 kg
[~2020-02-27] MED LIST changes: +LIDOCAINE 2% 100MG/5ML SDV (FOR ANES.) As Ordered ONE; +NS 1,000 ML IV ONE; +propofoL 200 MG/20 ML VIAL As Ordered ONE
[2020-02-27 14:50] VITALS: BP 130/69
== END | disposition home or self-care (01) ==
LOC: M OPP 14:34
PROVIDERS: ATTEND Internal Medicine Gastroenterology
DX: K91.89 Other postprocedural complications and disorders of digestive system (principal); Z98.84 Bariatric surgery status; Z53.8 Procedure and treatment not carried out for other reasons

== ENCOUNTER 2020-03-12 10:23 | Day surgery (SDC) | payer OTHER ==
[~2020-03-12] VITALS: Ht 172.7 cm; Wt 84.7 kg
[~2020-03-12 10:23] MED LIST changes: -LIDOCAINE 2% 100MG/5ML SDV (FOR ANES.) As Ordered ONE; -propofoL 200 MG/20 ML VIAL As Ordered ONE
[2020-03-12] MEDS ORDERED: propofoL 200 MG/20 ML VIAL As Ordered ONE (10:56)
[2020-03-12] MEDS ORDERED: LIDOCAINE 2% 100MG/5ML SDV (FOR ANES.) As Ordered ONE (10:56)
[2020-03-12 12:00] VITALS: BP 132/60
--- NOTE | 2020-03-12 12:14 | ROOR ---
Patient Name: Felipa Elliott Procedure Date: 03/12/2020 11:18 AM Date of : 1980 Age: 40 Room: [facility] Gender: Female Note Status: Finalized Procedure: Upper GI endoscopy Indications: Dyspepsia, Follow-up of gastrojejunal ulcer Providers: Bhavin Meek MD Referring MD: JOSETTE FINCH MD Requesting Provider: Medicines: Monitored Anesthesia Care Complications: No immediate complications. Procedure: Pre-Anesthesia Assessment: - Prior to the procedure, a History and Physical was performed, and patient medications and allergies were reviewed. The patient is competent. The risks and benefits of the procedure and the sedation options and risks were discussed with the patient. All questions were answered and informed consent was obtained. Patient identification and proposed procedure were verified by the physician, the nurse and the anesthesiologist in the procedure room. Mental Status Examination: alert and oriented. Airway Examination: normal oropharyngeal airway and neck mobility. Respiratory Examination: clear to auscultation. CV Examination: normal. Prophylactic Antibiotics: The patient does not require prophylactic antibiotics. Prior Anticoagulants: The patient has taken no previous anticoagulant or antiplatelet agents. ASA Grade Assessment: II - A patient with mild systemic disease. After reviewing the risks and benefits, the patient was deemed in satisfactory condition to undergo the procedure. The anesthesia plan was to use monitored anesthesia care (MAC). Immediately prior to administration of medications, the patient was re-assessed for adequacy to receive sedatives. The heart rate, respiratory rate, oxygen saturations, blood pressure, adequacy of pulmonary ventilation, and response to care were monitored throughout the procedure. The physical status of the patient was re-assessed after the procedure. The Endoscope was introduced through the mouth, and advanced to the second part of duodenum. The upper GI endoscopy was accomplished without difficulty. The patient tolerated the procedure well. Findings: The examined esophagus was normal. The Z-line was regular and was found 41 cm from the incisors. 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 The gastrojejunal anastomosis was characterized by erythema, ulceration and an intact staple line. This was traversed. The jejunojejunal anastomosis was characterized by congestion, erythema, friable mucosa and inflammation. The qqfdeydx-nj-kcvdjqn limb anastomotic site was examined. Two biopsies were obtained at the gastrojejunal anastomosis with cold forceps for histology and Helicobacter pylori testing. Verification of patient identification for the specimen was done by the physician and nurse using the patient's name, date and medical record number. Estimated blood loss was minimal. Evidence of a gastroenterostomy was found in the gastric body. This was characterized by erosion, erythema, ulceration and an intact staple line. The visible staple is carefully removed with biopsy forceps. No bleeding is noted at the end of the procedure. The examined jejunum was normal. There was evidence of a widely patent enteroenterostomy in the efferent jejunal loop. This was characterized by healthy appearing mucosa. Impression: - Normal esophagus. - Z-line regular, 41 cm from the incisors. - Nia-en-Y gastrojejunostomy with gastrojejunal anastomosis characterized by erythema, ulceration and an intact staple line. Two biopsies were obtained at the gastrojejunal anastomosis - Normal examined jejunum. - Widely patent enteroenterostomy, characterized by healthy appearing mucosa was found in the jejunum. Recommendation: - Patient has a contact number available for emergencies. The signs and symptoms of potential delayed complications were discussed with the patient. Return to normal activities tomorrow. Written discharge instructions were provided to the patient. - Post gastric bypass diet (small frequent meals and avoid fatty/ fried foods). - Continue present medications. - Use Pepcid (famotidine) 40 mg PO daily - take curb setter helper on empty stomach. - Await pathology results. - Telephone GI clinic if symptomatic. - Return to primary care physician. Bhavin Meek MD Bhavin Meek MD 03/12/2020 12:13:46 PM Electronically signed by Bhavin Meek MD Number of Addenda: 0 Note Initiated On: 03/12/2020 11:18 AM Estimated Blood Loss: Estimated blood loss was minimal.
== END 2020-03-12 12:30 | disposition home or self-care (01) ==
LOC: M OPP 10:23
PROVIDERS: ATTEND Internal Medicine Gastroenterology
DX: K29.70 Gastritis, unspecified, without bleeding (principal); Z98.0 Intestinal bypass and anastomosis status; R10.13 Epigastric pain; K28.9 Gastrojejunal ulcer, unspecified as acute or chronic, without hemorrhage or perforation

== ENCOUNTER → 2021-09-17 | Outpatient (CLI) | payer OTHER ==
[~2021-09-17] MED LIST changes: +MULT1TAB16 PO; -NS 1,000 ML IV ONE; +SLOW160T12 PO
== END ==
LOC: M WHC 10:56
PROVIDERS: ATTEND Family Medicine
DX: N64.4 Mastodynia (principal)
CPT/HCPCS: 76642; 77066; G0279

== ENCOUNTER → 2023-04-01 | Outpatient (CLI) | payer OTHER ==
[~2023-04-01] MED LIST changes: +IRON1TAB2 PO
== END ==
LOC: M WHC 06:40
PROVIDERS: ATTEND Nurse Practitioner Primary Care
DX: Z12.31 Encounter for screening mammogram for malignant neoplasm of breast (principal); R92.8 Other abnormal and inconclusive findings on diagnostic imaging of breast

== ENCOUNTER → 2024-06-06 | Outpatient (CLI) | payer OTHER ==
[~2024-06-06] MED LIST changes: +CVS5000S2 PO
== END ==
LOC: M WHC 09:40
PROVIDERS: ATTEND Family Medicine
DX: Z12.31 Encounter for screening mammogram for malignant neoplasm of breast (principal)

== ENCOUNTER 2025-05-06 11:11 | Day surgery (SDC) | payer OTHER ==
[~2025-05-06] VITALS: Ht 172.7 cm; Wt 102.2 kg
[~2025-05-06 11:11] MED LIST changes: +MACR100C43 PO; +NITR-67 PO
[2025-05-06] MEDS ORDERED: D 50CAP2 PO (11:18)
[2025-05-06] MEDS ORDERED: PHEN37.511 PO (11:18)
[2025-05-06 12:31] LABS: BASO # 0.0 10^3/uL (0.0-0.2); BASO % 0.3 % (0.0-1.0); EOS # 0.0 10^3/uL (0.0-0.5); EOS % 0.5 % (0.0-3.0); LYMPH # 1.4 10^3/uL (1.5-5.0); LYMPH % 18.8 % (24.0-44.0); MONO # 0.5 10^3/uL (0.0-0.8); MONO % 6.8 % (2.0-8.0); NEUTROPHILS # 5.4 10^3/uL (1.5-8.5); NEUTROPHILS % 73.3 % (36.0-66.0); PLATELET COUNT, AUTOMATED 178 10^3/uL (150-450)
[2025-05-06 12:53] LABS: ALT/SGPT 24 U/L (7.0-40); AST/SGOT 16 U/L (<34); CALCIUM LEVEL 9.3 MG/DL (8.5-10.1); CARBON DIOXIDE LEVEL 30 MMOL/L (20-31); CHLORIDE LEVEL 101 MMOL/L (98-107); CREATININE FOR GFR 0.58 MG/DL (0.55-1.30); GLOMERULAR FILTRATION RATE > 90.0 (>58); POTASSIUM SERUM 4.1 MMOL/L (3.5-5.1); SODIUM LEVEL 140 MMOL/L (136-145)
[2025-05-06 12:54] LABS: HCG, SERUM QUALITATIVE NEGATIVE (NEGATIVE)
[2025-05-06] MEDS ORDERED: GASTROGRAFIN SOLUTION 30 ML As Ordered ONE (13:41)
[2025-05-06] MEDS: GASTROGRAFIN SOLUTION 30ML PO SCH (13:50)
[2025-05-06] MEDS: NS (Normal Saline) 0.9% 1,000 ML IV ONE (13:50)
[2025-05-06] MEDS: KETOROLAC 30 MG/ML 1 ML VIAL IV ONE (13:51)
[2025-05-06 14:01] LABS: KETONE, URINE AUTO RFX NEGATIVE (NEGATIVE); LEUKOCYTE ESTERASE UR AUTO RFX NEGATIVE (NEGATIVE); MUCUS, URINE RFX SMALL (NEGATIVE); NITRITE, URINE AUTO RFX NEGATIVE (NEGATIVE); RBC, URINE AUTO RFX 0 /HPF (0-3); SQUAM EPITHELIAL CELL UR AURFX 1 /HPF (0-6); WBC, URINE AUTO RFX 0 /HPF (0-3)
[2025-05-06] MEDS ORDERED: ISOVUE-370 76% 100 ML VIAL As Ordered ONE (15:33)
[2025-05-06] MEDS: PIPERACILLIN/TAZOBACTAM SOD 4.5 GM in DEXTROSE 5% (D5W) ADV/MINI-BAG 50 ML IV ONE (16:10)
[2025-05-06] MEDS ORDERED: dexmedeTOMIDine (4 MCG/ML) 200 MCG/50 ML BTL As Ordered ONE (18:03)
[2025-05-06] MEDS ORDERED: KETOROLAC 30 MG/ML 1 ML VIAL As Ordered ONE (18:03)
[2025-05-06] MEDS ORDERED: ONDANSETRON 4MG/2ML VIAL As Ordered ONE (18:03)
[2025-05-06] MEDS ORDERED: ROCURONIUM BROMIDE 50MG/5ML VIAL As Ordered ONE (18:03)
[2025-05-06] MEDS ORDERED: LIDOCAINE 2% 100 MG/5 ML SDV (FOR ANES.) As Ordered ONE (18:03)
[2025-05-06] MEDS ORDERED: MIDAZOLAM INJ 2 MG/2 ML VIAL As Ordered ONE (18:03)
[2025-05-06] MEDS ORDERED: SUGAMMADEX SODIUM 500 MG/5 ML VIAL As Ordered ONE (18:03)
[2025-05-06] MEDS ORDERED: dexAMETHasone 4 MG/ML 1 ML VIAL As Ordered ONE (18:03)
[2025-05-06] MEDS ORDERED: ACETAMINOPHEN 1000MG/100ML IV BAG As Ordered ONE (18:14)
[2025-05-06] MEDS ORDERED: MORPHINE 4 MG/ML 1 ML VIAL IV PRN (19:15)
[2025-05-06] MEDS: HYDROMORPHONE HCL 0.5 MG/0.5 ML SYRINGE IV PRN (19:21)
[2025-05-06] MEDS ORDERED: ONDANSETRON 4MG/2ML VIAL IV PRN (19:30)
[2025-05-06 20:15] VITALS: BP 115/76; TEMP 97.8; O2SAT 97
[2025-05-06] MEDS: NS (Normal Saline) 0.9% 1,000 ML IV SCH (20:15)
[2025-05-06] MEDS: SENNOSIDES/DOCUSATE SODIUM 8.6 MG/50MG TAB PO SCH (21:23)
[2025-05-06] MEDS: PIPERACILLIN/TAZOBACTAM SOD 3.375 GM in DEXTROSE 5% (D5W) ADV/MINI-BAG 50 ML IV SCH (21:30)
[2025-05-06] MEDS ORDERED: HOME MED LIST COMPLETE! XX SCH (23:05)
[2025-05-07 03:47] VITALS: BP 100/54; TEMP 97.2; O2SAT 96
[2025-05-07] MEDS: KETOROLAC 30 MG/ML 1 ML VIAL IV PRN (08:05)
[2025-05-07] MEDS ORDERED: AUGM500T34 PO (08:35)
[2025-05-07] MEDS ORDERED: HYDR-3715 PO (08:35)
== END 2025-05-07 10:57 | disposition home or self-care (01) ==
LOC: M ED 11:11 → M SDC 17:10 → M MSPAV 20:05 → M SDC 05-07 10:57
PROVIDERS: ATTEND Surgery
DX: K35.33 Acute appendicitis with perforation, localized peritonitis, and gangrene, with abscess (principal); E03.9 Hypothyroidism, unspecified; Z98.84 Bariatric surgery status; Z85.41 Personal history of malignant neoplasm of cervix uteri
CPT/HCPCS: 44970; 74177; 80048; 80076; 81001; 83690; 84703; 85025; 88304; 99284; J0131; J0665; J1100; J1171; J1885; J2250; J2405; J2543; J2765; J3010; Q9967

== ENCOUNTER → 2025-06-07 | Outpatient (CLI) | payer OTHER ==
[~2025-06-07] MED LIST changes: +AUGM500T34 PO; +D 50CAP2 PO; +HYDR-3715 PO; +PHEN37.511 PO
== END ==
LOC: M WHC 06:56
PROVIDERS: ATTEND Family Medicine
DX: Z12.31 Encounter for screening mammogram for malignant neoplasm of breast (principal); R92.323 Mammographic fibroglandular density, bilateral breasts